=== PATIENT | female | born 2005 | race Caucasian/White ===

== ENCOUNTER 2023-09-12 07:59 | Outpatient (REF) | payer BC, OTHER, SELFPAY ==
[2023-09-12 08:29] LABS: MANUAL DIFF FLAG NO
[2023-09-12 09:08] LABS: Basophils Percent Auto 0.2 % (0-2); Eosinophils Absolute Auto 0.1 X10*3/uL (0.0-0.4); Eosinophils Percent Auto 2.4 % (0-4); Hematocrit 40.1 % (37.0-47.0); Hemoglobin 13.5 g/dl (12.0-16.0); Imm Gran Abs Auto 0.02 X10*3/uL (0.00-0.03); Imm Gran Pct Auto 0.4 % (0.0-0.4); Lymphocytes Absolute Auto 1.3 X10*3/uL (1.2-4.9); Lymphocytes Percent Auto 23.9 % (20-40); Mean Corpuscular HGB Conc 33.7 g/dl (31.0-35.0); Mean Corpuscular Hemoglobin 30.5 pg (27.0-33.0); Mean Corpuscular Volume 90.5 fL (80.0-98.0); Mean Platelet Volume 9.2 fL (9.4-12.3); Monocytes Absolute Auto 0.5 X10*3/uL (0.1-1.2); Monocytes Percent Auto 8.8 % (2-11); Neutrophils Absolute Auto 3.5 x10*3/uL (2.0-8.3); Neutrophils Percent Auto 64.3 % (45-73); Platelet Count 309 X10*3/uL (160-400); Red Blood Count 4.43 X10*6/uL (4.20-5.50); White Blood Count 5.5 X10*3/uL (4.8-10.8)
[2023-09-12 09:15] LABS: Estimated Average Glucose 100 mg/dL; Hemoglobin A1c % 5.1 % (<6.0)
[2023-09-12 09:51] LABS: Alanine Aminotransferase 19 U/L (0-31); Albumin Level 4.1 g/dL (3.5-5.0); Alkaline Phosphatase 58 U/L (39-117); Anion Gap 12 (12-20); Aspartate Amino Transferase 18 U/L (5-31); Bilirubin Total 0.4 mg/dL (0.0-1.0); Blood Urea Nitrogen 10 mg/dL (9-16); Calcium 9.1 mg/dL (8.4-10.2); Carbon Dioxide 25 mmol/L (22-29); Chloride 108 mmol/L (96-108); Cholesterol 150 mg/dL (<200); Estimated Glomerular Filt Rate > 60; Glucose Random 91 mg/dL (60-115); HDL Cholesterol 38 mg/dL (>40); LDL Cholesterol Calculated 79 mg/dL (<100); Potassium 4.4 mmol/L (3.3-5.1); Sodium 141 mmol/L (135-145); Total Protein 7.2 g/dL (6.5-8.0); Triglycerides 166 mg/dL (<150)
[2023-09-12 10:09] LABS: Thyroid Stimulating Hormone 2.92 uIU/mL (0.32-4.0); Vitamin D 25-OH Total 20.3 ng/mL (>30)
[2023-09-12 10:31] LABS: Vitamin B12 337 pg/mL (200-900)
[2023-09-14 08:59] LABS: Triiodothyronine T3 Free 3.6 pg/mL (3.0-4.7); Triiodothyronine T3 Total 138 ng/dL (86-192)
[2023-09-14 10:55] LABS: Thyroid Peroxidase Antibodies 245 IU/mL (<9)
== END 2023-09-12 08:00 | disposition home or self-care (01) ==
LOC: HO.LAB 07:59
PROVIDERS: Visit Provider Psychiatry & Neurology Psychiatry
DX: Z13.6 Encounter for screening for cardiovascular disorders (principal); F31.30 Bipolar disorder, current episode depressed, mild or moderate severity, unspecified
CPT/HCPCS: 36415; 80053; 80061; 82306; 82607; 83036; 84439; 84443; 84480; 84481; 85025; 86376

== ENCOUNTER 2023-09-14 10:30 | Outpatient (RCR) | payer BC, OTHER, SELFPAY ==
[2023-09-04 11:58] VITALS: BMI 53.2
[2023-09-04 12:00] VITALS: BP 126/87; PULSE 96; TEMP 36.6
--- NOTE | 2023-09-04 12:48 | PC.ADMIT ---
Patient is a 17 year old female who was referred to [facility] by crisis who met with patient on 07/27/23 as recommended by her PCP who made some medication changes including starting new medication Venlafaxine. At the time patient was feeling increasingly depressed with passive SI and some irrational thoughts surrounding . Venlafaxine has since been discontinued. Patient reports her PCP took off Buspar and Citalopram over a week taper after being on these medications since 7th grade during first week of June 2023. Reports having some withdrawal type symptoms when coming off the medication. Patient reports she has been on a CHANDU from work since July 29 until yesterday. Patient is currently on reduced work hours. She is attending college at [employer] and her assisted goal is to get her doctorate degree in Occupational Therapy. Patient is alert and oriented x4. Calm and cooperative. Presented with depressed mood and anxious affect. Tearful at times. Reports no SI currently however has had passive thoughts stating, it would be easier I just want quit . Denied any plans or intention of killing herself. Patient given a copy of her safety plan if needed and I reviewed this with her. Patient medications reconciled with patient and patient's pharmacy. She reports taking medications as prescribed.
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
--- NOTE | 2023-09-06 16:41 | HO.PHP ---
Client's case has been opened and reviewed in treatment team.
--- NOTE | 2023-09-07 23:47 | HO.PHPPROGNO ---
Subjective Subjective Date of Service: 09/07/23 Reason For Visit: PTSD,depression,anxiety Interim History: Patient seen for follow up. Doing ok reports mood still depressed, denies any hopelessness or SI. Recalls an incident earlier this week where she didn't have a meltdown and instead felt more capable of dealing with the problem or at least felt less reactive and increased ability to tolerate stess and frustration ok I guess I'm doing this . She has only one more day of lamotrigine 100 mg (4x25 mg tabs). She has been on 100 mg dose for the past week. Will refill medication, she is to continue at 100 mg/d for one more week and then can increase dose to 150 mg qd. Denies any AH, VH or HI. Denies any alcohol or substance use in interim. Sleep is okay, appetite, energy are variable Medication Compliance: Yes Side effects from medications: No Attending Groups: Yes Review of Systems Acute medical concerns: No Mental Status Exam Mental Status Exam Narrative: Alert, oriented, in no acute distress. Calm, cooperative, engaged. No psychomotor agitation or neurovegetative retardation. Eye contact maintained. Mood depressed, affect constricted. Speech normal. Thought process linear, coherent. Thought content related to stressors, transient hopelessness none currently, denies SI or HI. No paranoia or delusional content elicited. No evidence of psychosis. Insight and judgment - fair-good. Diagnostics Vital Signs (24Hr): BMI result Body Mass Index 53.2 Assessment & Plan Assessment & Plan (1) Bipolar affective, depress, unspec: Status: Acute Code(s): F31.30 - Bipolar disorder, current episode depressed, mild or moderate severity, unspecified Assessment and Plan: r/o depressive symptoms related to general medical condition (hypothyroidism) (2) ADHD (attention deficit hyperactivity disorder): Status: Acute Code(s): F90.9 - Attention-deficit hyperactivity disorder, unspecified type (3) PTSD (post-traumatic stress disorder): Status: Acute Code(s): F43.10 - Post-traumatic stress disorder, unspecified (4) Other anxiety states: Status: Acute Code(s): F41.1 - Generalized anxiety disorder Plan continue guanfacine ER 1 mg daily at 6pm will increase dose of Lamictal to 150 mg qd next week continue other regular medication pt given lab slip for routine lab work continue to monitor as per protocol Patient educated on: diagnosis and medication risk/benefits Informed Consent: understands Reason for contiued partial hosp. stay Substantial Risk for: inability to function, rapid decompensation and med/psych decompensation Certification I certify that partial hospital treatment is medically necessary due to the symptoms and problems resulting from the patient's mental illness and the failure to treat the patient at the partial hospital level of care would likely result in the patient requiring inpatient psychiatric care which could not be prevented at a less intensive level of care. Total time managing care of this patient today _30___ minutes. Discharge Plan Discharge Attending provider: Martina Barahona Medications: New guanfacine 1 mg tablet extended release 24 hr 1 mg PO DAILY Qty: 20 0RF lamotrigine 100 mg tablet 150 mg PO DAILY Qty: 30 0RF Continued lamotrigine 25 mg Tablet See Rx Instructions .ROUTE .COMPLEX Rx Instructions: Take one tab for 2 weeks then increase to 2 tabs for 2 weeks then increase to 3 tabs for 2 weeks then take 4 tabs daily. lorazepam 0.5 mg Tablet 0.5 mg PO BID PRN (Reason: Anxiety) albuterol sulfate [Ventolin HFA] 90 mcg/actuation HFA aerosol inhaler 2 puff inhalation Q4H lisdexamfetamine [Vyvanse] 50 mg capsule 50 mg PO DAILY
[2023-09-13 10:35] VITALS: BP 122/84; PULSE 88
--- NOTE | 2023-09-14 23:54 | HO.PHPPROGNO ---
Subjective Subjective Date of Service: 09/14/23 Reason For Visit: PTSD,depression,anxiety Interim History: Patient seen for follow-up, anticipating discharge at the end of program today.? I gotta get back to work but it's been great being here. I doing good Patient reports no acute issues or concerns. Medication compliant, medications well-tolerated. Denies any adverse effects.? We discussed ADHD diagnosis and reviewed some behavioral changes and strategies to manage attentional dysregulation. Mood is stable.? Denies any hopelessness or SI. Denies thoughts of harming self or others at this time. Denies any aggressive ideation or HI. Denies any paranoia or AH or VH. Sleep, appetite, energy stable. Mental Status Exam Mental Status Exam Narrative: Alert, oriented, in no acute distress. Calm, cooperative, animated, hyperactive at baseline. Mood stable, affect elevated, without any notable lability.. Speech normal. Thought process linear, coherent, more goal-directed, no FOI or CHANDU. Thought content related to stressors, future-oriented, denies any helplessness, hopelessness or SI.? No aggressive ideation or HI. No paranoia or delusional content elicited. No evidence of psychosis. Insight and judgment fair-good. Diagnostics Vital Signs (24Hr): BMI result Body Mass Index 53.2 Assessment & Plan Assessment & Plan (1) ADHD (attention deficit hyperactivity disorder): Status: Acute Code(s): F90.9 - Attention-deficit hyperactivity disorder, unspecified type (2) Bipolar affective, depress, unspec: Status: Acute Code(s): F31.30 - Bipolar disorder, current episode depressed, mild or moderate severity, unspecified (3) Other mixed anxiety disorders: Status: Acute Code(s): F41.3 - Other mixed anxiety disorders Plan [facility]charge from [facility] continue regular medications will defer further medication management to outpatient provider Refills sent to pharmacy Patient educated on: diagnosis and medication risk/benefits Informed Consent: understands Reason for contiued partial hosp. stay Substantial Risk for: stable for discharge Certification I certify that partial hospital treatment is medically necessary due to the symptoms and problems resulting from the patient's mental illness and the failure to treat the patient at the partial hospital level of care would likely result in the patient requiring inpatient psychiatric care which could not be prevented at a less intensive level of care. Total time managing care of this patient today __30__ minutes. Discharge Plan Discharge Attending provider: Martina Barahona Additional Instructions: Gisselle has an OP therapist, Katie Adams, through [facility] in [place], [place]. Gisselle has a med provider, Radha Rivera, through [facility]. Gisselle disclosed once she completes program she will be reaching out to schedule that appointment. Medications: New lamotrigine 100 mg tablet 150 mg PO DAILY Qty: 30 0RF ergocalciferol (vitamin D2) [Vitamin D2] 1,250 mcg (50,000 unit) capsule 1,250 mcg PO QWEEK 70 Days Qty: 10 0RF lisdexamfetamine 50 mg tablet,chewable 50 mg PO QAM Qty: 30 0RF Rx Instructions: Partial Fill upon patient request. Continued lorazepam 0.5 mg Tablet 0.5 mg PO BID PRN (Reason: Anxiety) albuterol sulfate [Ventolin HFA] 90 mcg/actuation HFA aerosol inhaler 2 puff inhalation Q4H Changed guanfacine 1 mg tablet extended release 24 hr 1 - 2 mg PO DAILY Qty: 30 0RF Discontinued lamotrigine 25 mg Tablet See Rx Instructions .ROUTE .COMPLEX Rx Instructions: Take one tab for 2 weeks then increase to 2 tabs for 2 weeks then increase to 3 tabs for 2 weeks then take 4 tabs daily. lisdexamfetamine [Vyvanse] 50 mg capsule 50 mg PO DAILY Stand Alone Forms: Patient Portal Discharge page Patient Education: Bipolar Disorder (DC) Print Language: Citizen [place]
== END 2023-09-14 23:59 | disposition home or self-care (01) ==
LOC: HO.PHPA 10:30
PROVIDERS: Visit Provider Psychiatry & Neurology Psychiatry
DX: F31.30 Bipolar disorder, current episode depressed, mild or moderate severity, unspecified (principal); F90.9 Attention-deficit hyperactivity disorder, unspecified type; F43.10 Post-traumatic stress disorder, unspecified; F41.3 Other mixed anxiety disorders; Z79.899 Other long term (current) drug therapy
CPT/HCPCS: 90791; 90853